=== PATIENT | female | born 1980 | race Caucasian/White ===

== ENCOUNTER 2017-12-23 07:22 | Outpatient (CLI) | payer MEDICAID ==
--- NOTE | 2017-12-23 14:07 | Ultrasound Report ---
Reason: ENCNTR FOR SUPRVSN OF NORMAL FIRST PREG, SECOND TR Procedure Date: 12/23/2017 Accession Number: [id number] / [id number] Procedure: US - OB Detailed Eval CPT Code: FULL RESULT: EXAM: COMPLETE OBSTETRICAL ULTRASOUND EXAM DATE: 12/23/2017 09:49 AM. CLINICAL HISTORY: anatomic survey. COMPARISON: None. TECHNIQUE: Real-time sonographic evaluation of the fetus performed by the pediatric oncologist. Multiple community engagement representative static images were saved for review. Additional transvaginal imaging to more accurately evaluate cervical length/placental position/etc. DATING: Established EGA 22 weeks 1 day with COLLINS 04/27/2018 based on LMP. EGA 21 weeks 5 days with COLLINS 04/30/2018 based on physician's statement. EGA 22 weeks 3 days with COLLINS 04/25/2018 based on the current ultrasound. GENERAL EVALUATION [place] . Cardiac activity: 163 bpm. movement: Visualized. Presentation: Cephalic. Placenta: Anterior position. No evidence for previa. Umbilical cord: 3 vessel cord. Central placental cord origin. Amniotic fluid: Subjectively normal. MVP 4.6 cm. FRAN 13.9. BIOMETRY Bi-Parietal Diameter (BPD): 5.5 cm, 22 weeks 4 days Head Circumference (HC): 20.0 cm, 22 weeks 1 day Abdominal Circumference (AC): 17.5 cm, 22 weeks 3 days Femur Length (FL): 3.8 cm, 22 weeks 2 days Estimated Weight: 493 g, 74th percentile for LMP. ANATOMY The intracranial structures, profile, face/nose/lips, spine, stomach, abdominal wall and cord insertion, diaphragm, kidneys, bladder, and extremities were visualized and demonstrate no abnormality. Four-chamber heart and ventricular outflow tracts are not well seen. MATERNAL STRUCTURES Uterus: Unremarkable. Cervix: Long and closed. Transabdominal length 4.4 cm. Right ovary/adnexa: Unremarkable. Left ovary/adnexa: Unremarkable. Free fluid: None. IMPRESSION: 1. [place] live intrauterine with gestational age 21 weeks 5 days based on physician's statement. 2. Estimated weight is within expected limits for assigned dating. 3. Four-chamber heart and ventricular outflow tracts are not evaluated. Recommend focused follow-up evaluation in 1-2 weeks for heart imaging. 4. No abnormalities are seen in other regards. RADIA
== END 2017-12-23 07:23 | disposition home or self-care (01) ==
LOC: DI 07:22
PROVIDERS: ATTEND Midwife
DX: Z34.02 Encounter for supervision of normal first pregnancy, second trimester (principal)
CPT/HCPCS: 76811

== ENCOUNTER 2018-01-12 12:52 | Outpatient (CLI) | payer MEDICAID ==
--- NOTE | 2018-01-12 14:39 | Ultrasound Report ---
Reason: FAS F/U FOR BETTER HEART VISUALIZATION PER RAD Procedure Date: 01/12/2018 Accession Number: [id number] / [id number] Procedure: US - OB F/U or Repeat CPT Code: FULL RESULT: EXAM: COMPLETE OBSTETRICAL ULTRASOUND. EXAM DATE: 01/12/2018 02:07 PM. CLINICAL HISTORY: anatomic survey. COMPARISON: OB detailed evaluation 12/23/2017 7:37 AM. TECHNIQUE: Real-time sonographic evaluation of the fetus performed by the ground surveillance systems operator. Multiple access services representative static images were saved for review. DATING: Established EGA 24 weeks 4 days with COLLINS 04/30/2018 based on referring physician information. EGA 24 weeks 7 days with COLLINS 04/27/2018 based on patient stated last menstrual period. EGA 25 weeks 6 days with COLLINS 04/21/2018 based on the current ultrasound. GENERAL EVALUATION [place] . Cardiac activity: 137 bpm. movement: Visualized. Presentation: Vertex. Placenta: Anterior position. No evidence for previa. Amniotic fluid: FRAN 19.6 MVP 5.3 cm. BIOMETRY Bi-Parietal Diameter (BPD): 6.5 cm, 26 weeks 0 days. Head Circumference (HC): 23.9 cm, 25 weeks 6 days. Abdominal Circumference (AC): 22.4 cm, 26 weeks 5 days. Femur Length (FL): 4.6 cm, 25 weeks 0 days. Estimated Weight: 894 g, 73rd percentile for 24 weeks 4 days. ANATOMY Additional images of the heart were obtained including adequate visualization of the four-chamber view and right and left ventricular outflow views. All cardiac views are normal. MATERNAL STRUCTURES Uterus: Visualized portions are normal. Cervix: Long and closed. Transabdominal length 4.5 cm. Free fluid: None. IMPRESSION: 1. [place] live intrauterine with gestational age 24 weeks 4 days based on referring physician information. 2. Estimated weight is within expected limits for assigned dating. 3. Normal views of the right and left ventricular outflow tract as well as the four-chamber cardiac view. This completes a normal anatomic survey. RADIA
== END 2018-01-12 12:53 | disposition home or self-care (01) ==
LOC: DI 12:52
PROVIDERS: ATTEND Midwife
DX: Z36.9 Encounter for antenatal screening, unspecified (principal)
CPT/HCPCS: 76816

== ENCOUNTER 2018-04-04 08:00 | Outpatient (CLI) | payer MEDICAID ==
[2018-04-04 10:13] LABS: TOTAL PROTEIN 24HR,URINE 448 mg/24hr (40-150); TOTAL PROTEIN,URINE TIMED 16 mg/dL; TOTAL VOLUME 24HRS,URINE 2800 mL
== END 2018-04-04 23:59 | disposition home or self-care (01) ==
LOC: LAB.R 08:00
PROVIDERS: ATTEND Midwife
DX: O16.3 Unspecified maternal hypertension, third trimester (principal)
CPT/HCPCS: 84155; 84156

== ENCOUNTER 2018-04-08 08:00 | Outpatient (CLI) | payer MEDICAID ==
[2018-04-08 16:17] LABS: BASOPHILS % (AUTO) 0.2 %; EOSINOPHILS % (AUTO) 0.3 %; HGB - HEMOGLOBIN 9.7 g/dL (12.0-16.0); LYMPHOCYTES # (AUTO) 1.7 10^3/uL (1.5-3.5); MEAN CORPUSCULAR HEMOGLOBIN 30.9 pg (27.0-31.0); MEAN CORPUSCULAR HGB CONC 33.4 g/dL (32.0-36.0); MEAN CORPUSCULAR VOLUME 92.7 fL (81.0-99.0); MEAN PLATELET VOLUME 9.6 fL (7.9-10.8); MONOCYTES # (AUTO) 1.5 10^3/uL (0.0-1.0); NEUTROPHILS # (AUTO) 8.9 10^3/uL (1.5-6.6); NEUTROPHILS % (AUTO) 73.5 %; PLT - PLATELET COUNT 174 10^3/uL (130-450); RED BLOOD COUNT 3.14 10^6/uL (4.20-5.40); RED CELL DISTRIBUTION WIDTH 14.3 % (12.0-15.0); WHITE BLOOD COUNT 12.1 x10^3/uL (4.8-10.8)
[2018-04-08 16:24] LABS: ALBUMIN 2.3 g/dL (3.2-5.5); BILIRUBIN,TOTAL 0.4 mg/dL (0.2-1.0); CALCIUM 8.3 mg/dL (8.5-10.3); CREATININE 0.9 mg/dL (0.4-1.0); TOTAL PROTEIN 4.5 g/dL (6.7-8.2)
== END 2018-04-08 23:59 | disposition home or self-care (01) ==
LOC: LAB.R 08:00
PROVIDERS: ATTEND Midwife
DX: O67.9 Intrapartum hemorrhage, unspecified (principal)
CPT/HCPCS: 80053; 82728; 85025

== ENCOUNTER 2019-12-22 08:37 | Outpatient (CLI) | payer MEDICAID | END 2019-12-22 08:38 | disposition home or self-care (01) | LOC: COV 08:37 | PROVIDERS: ATTEND Family Medicine | DX: R05 Cough (principal); R09.81 Nasal congestion; Z20.828 Contact with and (suspected) exposure to other viral communicable diseases ==

== ENCOUNTER 2021-01-30 17:09 | Outpatient (CLI) | payer MEDICAID ==
--- NOTE | 2021-01-30 19:30 | Ultrasound Report ---
PROCEDURE: OB First Trimester INDICATIONS: VAGINAL BLEEDING FIRST TRIMESTER OUTSIDE/PRIOR DATING DATA: Last menstrual period (LMP): 12/03/2020. LMP-based estimated date of delivery (COLLINS): 09/09/2021. First dating scan (date and location): 01/30/2021. Estimated date of delivery (COLLINS) from first dating scan: 09/12/2021. The below data below was generated using the ultrasound COLLINS of 09/12/2021 TECHNIQUE: Real-time scanning was performed of the fetus and maternal pelvic organs, with image documentation. COMPARISON: None FINDINGS: A single nonviable first trimester intrauterine is noted with a crown-rump lengt h measuring 7 weeks 6 days without a heartbeat. Embryo: 1.5 cm, 7 weeks 6 days Heart rate: Absent Measurement variability in dating: +/- 4 weeks by LMP, +/- 7 days by mean sac diameter (use before 6 weeks gestation if crown-rump length not able to be measured), +/- 5 days by crown-rump length (6-12 weeks gestation). Maternal organs: Ovaries not imaged. IMPRESSION: Nonviable early first trimester intrauterine with a crown-rump length measuring 7 weeks 6 d ays without a heartbeat. Reviewed by: Daivd Huerta MD on 01/30/2021 7:29 PM PST Approved by: David Huerta MD on 01/30/2021 7:29 PM PST Station ID: [id number]
--- NOTE | 2021-01-30 19:31 | Ultrasound Report ---
PROCEDURE: OB transvaginal INDICATIONS: VAGINAL BLEEDING FIRST TRIMESTER OUTSIDE/PRIOR DATING DATA: Last menstrual period (LMP): 12/03/2020. LMP-based estimated date of delivery (COLLINS): 09/09/2021. First dating scan (date and location): 01/30/2021. Estimated date of delivery (COLLINS) from first dating scan: 09/12/2021. The below data below was generated using the ultrasound COLLINS of 09/12/2021 TECHNIQUE: Real-time scanning was performed of the fetus and maternal pelvic organs, with image documentation. COMPARISON: First trimester transabdominal OB ultrasound from the same date FINDINGS: A single nonviable first trimester intrauterine is noted with a crown-rump lengt h measuring 7 weeks 6 days without a heartbeat. Embryo: 1.5 cm, 7 weeks 6 days Heart rate: Absent Measurement variability in dating: +/- 4 weeks by LMP, +/- 7 days by mean sac diameter (use before 6 weeks gestation if crown-rump length not able to be measured), +/- 5 days by crown-rump length (6-12 weeks gestation). Maternal organs: Ovaries not imaged. IMPRESSION: Nonviable early first trimester intrauterine with a crown-rump length measuring 7 weeks 6 d ays without a heartbeat. Reviewed by: David Huerta MD on 01/30/2021 7:29 PM PST Approved by: David Huerta MD on 01/30/2021 7:29 PM PST Station ID: [id number]
== END 2021-01-30 17:10 | disposition home or self-care (01) ==
LOC: DI 17:09
PROVIDERS: ATTEND Midwife
DX: O36.4XX0 Maternal care for intrauterine death, not applicable or unspecified (principal); Z3A.01 Less than 8 weeks gestation of pregnancy

== ENCOUNTER 2021-02-21 08:23 | Outpatient (CLI) | payer MEDICAID | END 2021-02-21 08:24 | disposition home or self-care (01) | LOC: LAB.S 08:23 | PROVIDERS: ATTEND Nurse Practitioner Obstetrics & Gynecology | DX: O02.1 Missed abortion (principal) | CPT/HCPCS: 36415; 84702 ==

== ENCOUNTER 2021-02-28 08:00 | Outpatient (CLI) | payer MEDICAID | END 2021-02-28 23:59 | disposition home or self-care (01) | LOC: LAB.S 08:00 | PROVIDERS: ATTEND Nurse Practitioner Obstetrics & Gynecology | DX: O02.1 Missed abortion (principal) | CPT/HCPCS: 36415; 84702 ==

== ENCOUNTER 2021-03-16 13:32 | Outpatient (CLI) | payer MEDICAID | END 2021-03-16 13:33 | disposition home or self-care (01) | LOC: LAB.S 13:32 | PROVIDERS: ATTEND Midwife | DX: O09.511 Supervision of elderly primigravida, first trimester (principal) | CPT/HCPCS: 36415; 84144; 84702 ==

== ENCOUNTER 2022-01-14 08:00 | Outpatient (CLI) | payer MEDICAID ==
[2022-01-14 19:42] LABS: HCT - HEMATOCRIT 41.4 % (37.0-47.0); HGB - HEMOGLOBIN 13.4 g/dL (12.0-16.0); MEAN CORPUSCULAR HEMOGLOBIN 29.6 pg (27.0-31.0); MEAN CORPUSCULAR HGB CONC 32.4 g/dL (32.0-36.0); MEAN CORPUSCULAR VOLUME 91.4 fL (81.0-99.0); MEAN PLATELET VOLUME 9.7 fL (7.9-10.8); RED BLOOD COUNT 4.53 10^6/uL (4.20-5.40)
[2022-01-14 19:52] LABS: ALBUMIN 4.1 g/dL (3.2-5.5); ALBUMIN/GLOBULIN RATIO 1.2 (1.0-2.2); ALKALINE PHOSPHATASE 57 IU/L (42-121); ALT ALANINE AMINOTRANSFERASE 20 IU/L (10-60); AST ASPARTATE AMINOTRANSFERASE 21 IU/L (10-42); BILIRUBIN,TOTAL 0.6 mg/dL (0.2-1.0); BUN - BLOOD UREA NITROGEN 14 mg/dL (6-20); CALCIUM 9.4 mg/dL (8.5-10.3); CARBON DIOXIDE - CO2 27 mmol/L (21-32); CHLORIDE 102 mmol/L (101-111); CHOL/HDL RATIO 3.5 (<4.4); CHOLESTEROL 171 mg/dL; CREATININE 0.9 mg/dL (0.4-1.0); CRP HIGH SENSITIVITY 10.3 mg/L; GFR - MDRD 69 (>89); GLUCOSE 102 mg/dL (70-100); HDL CHOLESTEROL 49 mg/dL; LDL CHOLESTEROL,CALCULATED 103 mg/dL; LDL/HDL RATIO 2.1 (<4.4); POTASSIUM 4.2 mmol/L (3.5-5.0); SODIUM 138 mmol/L (135-145); TOTAL PROTEIN 7.5 g/dL (6.7-8.2); TRIGLYCERIDES 93 mg/dL; VLDL CHOLESTEROL 19 mg/dL
[2022-01-14 20:07] LABS: THYROID STIMULATING HORMONE 2.63 uIU/mL (0.34-5.60)
[2022-01-14 20:09] LABS: FREE T4 (FREE THYROXINE) 0.81 ng/dL (0.58-1.64)
[2022-01-14 20:25] LABS: ESTIMATED AVERAGE GLUCOSE 123 mg/dL (70-100); HEMOGLOBIN A1c% 5.9 % (4.27-6.07)
== END 2022-01-14 23:59 | disposition home or self-care (01) ==
LOC: LAB.S 08:00
PROVIDERS: ATTEND Nurse Practitioner Obstetrics & Gynecology
DX: Z01.419 Encounter for gynecological examination (general) (routine) without abnormal findings (principal); I10 Essential (primary) hypertension; E66.9 Obesity, unspecified; Z13.21 Encounter for screening for nutritional disorder; Z13.29 Encounter for screening for other suspected endocrine disorder; Z13.220 Encounter for screening for lipoid disorders; Z83.49 Family history of other endocrine, nutritional and metabolic diseases
CPT/HCPCS: 36415; 80053; 80061; 83036; 83721; 84439; 84443; 85027; 86141

== ENCOUNTER 2022-02-05 07:00 | Outpatient (CLI) | payer MEDICAID | END 2022-02-05 23:59 | disposition home or self-care (01) | LOC: LAB.S 07:00 | PROVIDERS: ATTEND Nurse Practitioner Obstetrics & Gynecology | DX: Z32.01 Encounter for pregnancy test, result positive (principal) | CPT/HCPCS: 36415; 84702 ==

== ENCOUNTER 2022-02-07 09:37 | Outpatient (CLI) | payer MEDICAID | END 2022-02-07 09:38 | disposition home or self-care (01) | LOC: LAB.S 09:37 | PROVIDERS: ATTEND Nurse Practitioner Obstetrics & Gynecology | DX: Z32.01 Encounter for pregnancy test, result positive (principal) | CPT/HCPCS: 36415; 84702; 86900; 86901 ==

== ENCOUNTER 2022-02-12 13:35 | Outpatient (CLI) | payer MEDICAID | END 2022-02-12 13:36 | disposition home or self-care (01) | LOC: LAB.S 13:35 | PROVIDERS: ATTEND Nurse Practitioner Obstetrics & Gynecology | DX: Z32.01 Encounter for pregnancy test, result positive (principal) | CPT/HCPCS: 36415; 84702 ==

== ENCOUNTER 2022-02-16 13:16 | Emergency (ER) | payer MEDICAID ==
[2022-02-16] MEDS ORDERED: ONDANSETRON ODT 4 MG TABLET TL STA (13:27)
[2022-02-16 13:57] LABS: BILIRUBIN,URINE NEGATIVE (NEGATIVE); GLUCOSE, URINE (UA) NEGATIVE (NEGATIVE); KETONES,URINE (UA) TRACE mg/dL (NEGATIVE); LEUKOCYTE ESTERASE, URINE SMALL (NEGATIVE); NITRITE,URINE NEGATIVE (NEGATIVE); OCCULT BLOOD,URINE NEGATIVE (NEGATIVE); PROTEIN,URINE NEGATIVE (NEGATIVE); UROBILINOGEN,URINE 1 (NORMAL) E.U./dL (NORMAL)
[2022-02-16 14:01] LABS: BASOPHILS % (AUTO) 0.2 %; EOSINOPHILS % (AUTO) 0.1 %; HCT - HEMATOCRIT 42.1 % (37.0-47.0); LYMPHOCYTES # (AUTO) 0.5 10^3/uL (1.5-3.5); MEAN CORPUSCULAR HGB CONC 33.3 g/dL (32.0-36.0); MEAN CORPUSCULAR VOLUME 90.3 fL (81.0-99.0); MONOCYTES # (AUTO) 0.5 10^3/uL (0.0-1.0); MONOCYTES % (AUTO) 5.3 %; NEUTROPHILS % (AUTO) 89.2 %; PLT - PLATELET COUNT 221 10^3/uL (130-450); RED BLOOD COUNT 4.66 10^6/uL (4.20-5.40); RED CELL DISTRIBUTION WIDTH 13.2 % (12.0-15.0); WHITE BLOOD COUNT 10.1 x10^3/uL (4.8-10.8)
[2022-02-16 14:01] LABS: CLARITY,URINE CLEAR (CLEAR); HCG UR QUAL POSITIVE
[2022-02-16 14:10] LABS: RBC,URINE 0-5 /HPF (0-5)
[2022-02-16 14:11] LABS: BACTERIA,URINE Moderate /HPF (None Seen); MUCUS,URINE Marked Strands; SQUAMOUS EPITHELIAL CELL,UR MANY Squamous (<= Few)
[2022-02-16 14:12] LABS: ALBUMIN 4.4 g/dL (3.2-5.5); ALBUMIN/GLOBULIN RATIO 1.3 (1.0-2.2); BILIRUBIN,TOTAL 1.3 mg/dL (0.2-1.0); CALCIUM 8.9 mg/dL (8.5-10.3); CREATININE 0.8 mg/dL (0.4-1.0); POTASSIUM 3.9 mmol/L (3.5-5.0); TOTAL PROTEIN 7.7 g/dL (6.7-8.2)
[2022-02-16] MEDS ORDERED: SODIUM CHLORIDE 0.9% 1,000 ML IV STA (14:33)
[2022-02-16] MEDS ORDERED: PROMETHAZINE INJ 12.5 MG in SODIUM CHLORIDE 0.9% 50 ML IV STA (14:33)
--- NOTE | 2022-02-16 15:57 | ED Physician Documentation ---
History of Present Illness - Stated complaint Stated Complaint: ABD PAIN/NAUSEA - Chief complaint Chief Complaint: Abd Pain - History obtained from History obtained from: Patient - Additonal information Additional information: The patient comes to the emergency department with chief complaint of an escalation in her nausea and vomiting today. The patient is roughly 8 weeks and has been nauseated over the last few weeks. She has been followed by band saw marker Margaret Quiñones, and has had serial hCGs which have been rising more slowly than would be expected. She states that her band saw marker was concerned because patient has had demise previously and she also was not sure if the patient may have an ectopic. She has not yet had an ultrasound this and states her band saw marker told her to get 1 done by 2 days from now or "go to the ER". The patient is not having any vaginal bleeding. She is having a little pain just below her umbilicus but otherwise, no pelvic pain. No dysuria, fever, or chills. She does have a child who attends a preschool/daycare and is not sure if she got something that way instead. No other complaints at this time. Review of Systems Constitutional: reports: Reviewed and negative Eyes: reports: Reviewed and negative Ears: reports: Reviewed and negative Nose: reports: Reviewed and negative Throat: reports: Reviewed and negative Cardiac: reports: Reviewed and negative Respiratory: reports: Reviewed and negative GI: reports: Abdominal Pain, Nausea, Vomiting : reports: Now EGA. denies: Vaginal bleeding Skin: reports: Reviewed and negative Musculoskeletal: reports: Reviewed and negative Neurologic: reports: Reviewed and negative Psychiatric: reports: Reviewed and negative Endocrine: reports: Reviewed and negative Immunocompromised: reports: Reviewed and negative PD PAST MEDICAL HISTORY - Present Medications Home Medications: Ambulatory Orders Medication Instructions Recorded Confirmed cephALEXin [Keflex] 500 mg PO BID #14 cap 02/16/22 - Allergies Allergies/Adverse Reactions: Allergies Allergy/AdvReac Type Severity Reaction Status Date / Time amoxicillin Allergy Hives Verified 02/16/22 13:30 PD ED PE NORMAL - Vitals Vital signs reviewed: Yes - General General: Alert and oriented X 3, No acute distress, Well developed/nourished - HEENT HEENT: Atraumatic, PERRL, EOMI, Moist mucous membranes - Neck Neck: Supple, no meningeal sign - Cardiac Cardiac: RRR, No murmur, Strong equal pulses - Respiratory Respiratory: No respiratory distress, Clear bilaterally - Abdomen Abdomen: Soft, Non distended, Other (Mild tenderness, periumbilical.) - Derm Derm: Normal color, Warm and dry, No rash - Extremities Extremities: No deformity, No edema - Neuro Neuro: Alert and oriented X 3 - Psych Psych: Normal mood, Normal affect Results - Vitals Vitals: Vital Signs - 24 hr 02/16/22 02/16/22 02/16/22 13:31 15:10 17:11 Temperature 36.8 C 36.8 C Heart Rate 107 H 93 92 Respiratory 19 15 15 Rate Blood Pressure 139/86 H 153/95 H 143/82 H O2 Saturation 100 100 98 Oxygen O2 Source Room air - Labs Labs: Laboratory Tests 02/16/22 02/16/22 02/16/22 13:45 13:53 13:53 WBC 10.1 RBC 4.66 Hgb 14.0 Hct 42.1 MCV 90.3 MCH 30.0 MCHC 33.3 RDW 13.2 Plt Count 221 MPV 9.0 Neut # (Auto) 9.0 H Lymph # (Auto) 0.5 L Walsh # (Auto) 0.5 Eos # (Auto) 0.0 Baso # (Auto) 0.0 Absolute Nucleated RBC 0.00 Nucleated RBC % 0.0 Sodium 133 L Potassium 3.9 Chloride 102 Carbon Dioxide 23 Anion Gap 8.0 BUN 11 Creatinine 0.8 Estimated GFR (MDRD) 79 L Glucose 123 H Calcium 8.9 Total Bilirubin 1.3 H AST 17 ALT 20 Alkaline Phosphatase 50 Total Protein 7.7 Albumin 4.4 Globulin 3.3 Albumin/Globulin Ratio 1.3 Lipase 35 HCG, Quant Urine Color YELLOW Urine Clarity CLEAR Urine pH 6.0 Ur Specific [place] 1.025 Urine Protein NEGATIVE Urine Glucose (UA) NEGATIVE Urine Ketones TRACE Urine Occult Blood NEGATIVE Urine Nitrite NEGATIVE Urine Bilirubin NEGATIVE Urine Urobilinogen 1 (NORMAL) Ur Leukocyte Esterase SMALL H Urine RBC 0-5 Urine WBC 4-5 Ur Squamous Epith Cells MANY Squamous H Urine Bacteria Moderate H Urine Mucus Marked Strands Ur Microscopic Review INDICATED Urine Culture Comments NOT INDICATED Urine HCG, Qual POSITIVE 02/16/22 13:53 WBC RBC Hgb Hct MCV MCH MCHC RDW Plt Count MPV Neut # (Auto) Lymph # (Auto) Walsh # (Auto) Eos # (Auto) Baso # (Auto) Absolute Nucleated RBC Nucleated RBC % Sodium Potassium Chloride Carbon Dioxide Anion Gap BUN Creatinine Estimated GFR (MDRD) Glucose Calcium Total Bilirubin AST ALT Alkaline Phosphatase Total Protein Albumin Globulin Albumin/Globulin Ratio Lipase HCG, Quant 34587.00 Urine Color Urine Clarity Urine pH Ur Specific [place] Urine Protein Urine Glucose (UA) Urine Ketones Urine Occult Blood Urine Nitrite Urine Bilirubin Urine Urobilinogen Ur Leukocyte Esterase Urine RBC Urine WBC Ur Squamous Epith Cells Urine Bacteria Urine Mucus Ur Microscopic Review Urine Culture Comments Urine HCG, Qual PD Medical Decision Making - ED course Complexity details: reviewed results, re-evaluated patient, considered differential, d/w patient ED course: The patient was treated symptomatically with IV fluids and Phenergan after receiving an ODT Zofran in the lobby while waiting. I did review the patient's previous hCGs, and found that they had been doubling approximately every 4 to 5 days. Her hCG today was around 82,000. OB ultrasound was performed and showed a live IUP at about 7 weeks. Due to an extended resuscitation in the ED, my partner GUILLE Arreola followed up with the pt regarding her results, given that her children were with a flatbed truck driver and she did not want to wait in the ED any longer. The pt was feeling much better on re-evaluation, and was stable for d/c. Departure - Departure Disposition: 01 Home, Self Care Clinical Impression: Threatened miscarriage, Subchorionic hemorrhage in first trimester, Bacteria in urine Condition: Stable Prescriptions: cephALEXin [Keflex] 500 mg PO BID #14 cap Comments: Bridgette you are seen today in the emergency department to establish whether you had an intrauterine or not. The ultrasound does show that you have a single live intrauterine measuring about 7 weeks 5 days. Baby had a heart rate of 173 which is normal for this gestation. There is a small subchorionic hemorrhage that is and noted. This does put you at risk for early miscarriage. Your urine did have a fair amount of bacteria in it though it was not necessarily a clean specimen. We typically treat any bacteria in with antibiotics and I have sent a prescription for Keflex and antibiotics to the pharmacy in [place]. It is important that you follow closely with your band saw marker. If at any point you develop fevers, have chest pain, shortness of air or severe/heavy vaginal bleeding measured as saturating a pad or tampon every hour for 4 more hours you need to return immediately to the ER. Discharge Date/Time: 02/16/22 18:06
--- NOTE | 2022-02-16 16:41 | Ultrasound Report ---
PROCEDURE: OB First Trimester w/TV INDICATIONS: poorly rising HCG, low abd pain OUTSIDE/PRIOR DATING DATA: Last menstrual period (LMP): 12/22/2021. LMP-based estimated date of delivery (COLLINS): 09/28/2022. First dating scan (date and location): 02/16/2022. Estimated date of delivery (COLLINS) from first dating scan: 09/30/2022. The below data below was generated using the working COLLINS of 09/30/2022 TECHNIQUE: Real-time scanning was performed of the fetus and maternal pelvic organs, with image documentation. Endovaginal scanning was also performed to better visualize the fetus and maternal ovaries. COMPARISON: None FINDINGS: Embryo: [place]-rump length measures 1.37 cm, corresponding with a 7 week 5 day gestation Heart rate: 173 bpm Perigestational bleed measures 1.7 x 0.4 x 2.2 cm Measurement variability in dating: +/- 4 weeks by LMP, +/- 7 days by mean sac diameter (use before 6 weeks gestation if crown-rump length not able to be measured), +/- 5 days by crown-rump length (6-12 weeks gestation). Maternal organs: Neither ovary visualized IMPRESSION: Single live intrauterine corresponds with a 7 week 5 day gestation Perigestational bleed Reviewed by: Juan Antonio Price MD on 02/16/2022 3:40 PM [place] Approved by: Juan Antonio Price MD on 02/16/2022 3:40 PM [place] Station ID: [id number]
[2022-02-16 17:11] VITALS: BP 143/82
[2022-02-16] MEDS ORDERED: ONDANSETRON 4 MG/2 ML VIAL IVP STA (17:54)
--- NOTE | 2022-02-16 18:00 | ED Physician Documentation ---
ED Addendum - Addendum Addendum: 02/16/22 17:58 I followed up on this ED patient who presented to the emergency department to determine source of lower abdominal discomfort and to ensure an intrauterine . Please see Dr. Chang's note for full evaluation. However due to the clinical status of the emergency department I was asked to discharge the patient if felt appropriate. I have evaluated the patient's ultrasound and find that she does have a live single IUP measuring 7 weeks 5 days with a small asso ciated subchorionic hemorrhage. The rest of her screening labs were unremarkable with the exception of her urine which showed a fair amount of bacteria. These findings were discussed with the patient. She will continue to follow closely with Her analysis or research safety inspector. I have sent a prescription for Keflex to the pharmacy. We also discussed the appropriate return precautions for threatened miscarriage in the setting of first trimester /subchorionic hemorrhage. She is discharged in stable condition.
== END 2022-02-16 18:06 | disposition home or self-care (01) ==
LOC: ED 13:16
DX: O20.0 Threatened abortion (principal); O99.891 Other specified diseases and conditions complicating pregnancy; R82.71 Bacteriuria; Z3A.01 Less than 8 weeks gestation of pregnancy
CPT/HCPCS: 36415; 76801; 76817; 80053; 81001; 81025; 83690; 84702; 85025; 96365; 96366; 96375; 99284; J7040; 81003; 87086

== ENCOUNTER 2022-02-21 08:04 | Outpatient (CLI) | payer MEDICAID ==
[2022-02-21 08:43] LABS: GTT GLUCOSE,FASTING 98 mg/dL (70-100)
== END 2022-02-21 08:05 | disposition home or self-care (01) ==
LOC: LAB 08:04
PROVIDERS: ATTEND Nurse Practitioner Obstetrics & Gynecology
DX: Z68.41 Body mass index [BMI] 40.0-44.9, adult (principal)
CPT/HCPCS: 36415; 82951

== ENCOUNTER 2022-11-21 14:35 | Outpatient (CLI) | payer MEDICAID ==
--- NOTE | 2022-11-21 16:05 | XRAY Report ---
PROCEDURE: Hips 2V BILAT INDICATIONS: BILATERAL HIP JOINT PAIN TECHNIQUE: 2 views of the hips were acquired. COMPARISON: None. FINDINGS: Bones: No fractures or dislocations. No suspicious bony lesions. Soft tissues: No suspicious soft tissue calcifications or masses. IMPRESSION: No acute bony abnormality. No significant degenerative change. Reviewed by: Wolf Chavez on 11/21/2022 4:04 PM PDT Approved by: Wolf Chavez on 11/21/2022 4:04 PM PDT Station ID: [id number]
== END 2022-11-21 14:36 | disposition home or self-care (01) ==
LOC: DI.S 14:35
PROVIDERS: ATTEND Physician Assistant Medical
DX: M25.551 Pain in right hip (principal); M25.552 Pain in left hip